=== PATIENT | female | born 1955 | race Caucasian/White ===

== ENCOUNTER 2016-08-10 07:46 | Observation (INO) | payer BC ==
[~2016-08-10] VITALS: Ht 160 cm; Wt 78.7 kg
[2016-08-10 08:55] LABS: ADD MIUA? YES; BILIRUBIN NEGATIVE; BLOOD MODERATE; COLOR AMBER ((YELLOW)); GLUCOSE (STRIP) NEGATIVE; KETONES NEGATIVE; LEUKOCYTES NEGATIVE; PROTEIN (STRIP) 30; SPECIFIC GRAVITY 1.024 (1.000-1.030)
[2016-08-10 09:00] LABS: BASOPHIL COUNT 0.1 K/uL (0-0.1); EOSINOPHIL (%) 1.9 % (0-5); EOSINOPHIL COUNT 0.1 K/uL (0-0.3); HEMATOCRIT 37.3 % (36.0-46.0); IMMATURE GRANULOCYTE (%) 0.4 % (0.0-0.7); INSTRUMENT ABS NEUTROPHIL CT 2.5 K/uL; LYMPHOCYTE COUNT 2.1 K/uL (1.0-2.8); MCH 29.2 PG (29.0-34.0); MCHC 32.4 G/DL (30.0-36.0); MCV 90.1 FL (83-99); MEAN PLAT.VOLUME 10.9 uM^3 (9.5-12.4); MONOCYTE (%) 9.5 % (3-12); MONOCYTE COUNT 0.5 K/uL (0-0.8); NEUTROPHIL (%) 47.4 % (45-76); NEUTROPHIL COUNT 2.5 K/uL (1.8-6.4); NRBC (%) 0.9 /100 WBC (0-0); PLATELET COUNT 253 K/uL (156-360); RBC DIS.WIDTH-CV 13.1 % (11.8-14.6); RBC DIS.WIDTH-SD 43.5 % (39-53); RED BLOOD COUNT 4.14 M/uL (3.80-5.20); WHITE BLOOD COUNT 5.4 K/uL (4.1-10.2)
[2016-08-10 09:01] LABS: BACTERIA 1+ /HPF; EPITHELIAL CELLS 1+ /HPF; MUCUS TRACE /LPF; NITRITE POSITIVE; RED BLOOD CELLS 30-40 /HPF (0-5); UCUL ADDED? NO; WHITE BLOOD CELLS 0-5 /HPF (0-5)
[2016-08-10 09:09] LABS: CHLORIDE 110 mEq/L (99-109); POTASSIUM 4.1 mEq/L (3.7-5.4); SODIUM 141 mEq/L (136-147)
[2016-08-10 09:11] LABS: GLUCOSE 118 mg/dL (70-99)
[2016-08-10 09:13] LABS: ANION GAP 10 MEQ/L (2-14)
[2016-08-10 09:15] LABS: GFR ESTIMATE (CALCULATED) > 59 mL/min/
[2016-08-10 09:16] LABS: UREA NITROGEN (BUN) 19 mg/dL (9-23)
[2016-08-10] MEDS ORDERED: ESTRACE1 MG PO (13:54)
[2016-08-10] MEDS ORDERED: ZYRTEC10 M2 PO (13:55)
[2016-08-10] MEDS ORDERED: PRILOSEC20 MG PO (13:55)
[2016-08-10] MEDS ORDERED: ZETIA10 MG PO (13:55)
[2016-08-10 15:54] VITALS: BP 117/64
[2016-08-10 20:47] VITALS: BP 110/54
[2016-08-11 03:56] VITALS: BP 100/52
[2016-08-11 07:45] VITALS: BP 127/66
[2016-08-11] MEDS ORDERED: CIPRO500 MG PO (10:54)
[2016-08-11] MEDS ORDERED: TRAMADOL HCL50 MG PO (10:54)
== END 2016-08-11 11:31 | disposition home or self-care (01) ==
LOC: EME 07:46 → 5WEST 12:22 → EDOF 12:22 → 5WEST 15:44
PROVIDERS: Emergency Medicine
DX: N39.0 Urinary tract infection, site not specified (principal); N20.1 Calculus of ureter; E78.5 Hyperlipidemia, unspecified; K58.9 Irritable bowel syndrome, unspecified
CPT/HCPCS: 74176; 80048; 81003; 85025; 87086; 99281; 99285; G0378; J0744; J1170; J1885; J2405; J3010; J7050